=== PATIENT | male | born 2000 | race Caucasian/White ===

== ENCOUNTER 2024-05-12 10:26 | Emergency (ER) | payer SELFPAY ==
[2024-05-12 10:37] VITALS: BP 140/73
--- NOTE | 2024-05-12 11:45 | ED.SKININJ ---
HPI-Injury
General
Chief Complaint: Skin Surface Trauma
Source: patient
Exam Limitations: none
Time Seen by Provider: 05/12/24 11:12
History of Present Illness-Injury
Is this injury a work related problem?: Yes
Is pt an associate of [facility]?: No
Initial Injury comments:
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 He states he had a tetanus shot within the last 5 years.
Past History
Past History
ED Past Medical History: None
ED Past Surgical History: Appendectomy
Social History
Tobacco: Non-smoker
Alcohol: None
Drug: None
Personal: Single
Living: with family
Employment: Employed
Family History
Family History: Other (Noncontributory)
Review of Systems
Review of Systems
Allergies reviewed?: Yes
All Other Systems: ROS reviewed and negative except as documented in HPI and ROS
Skin: Reports other (Right forearm wound)
Skin Exam
Abrasion
Right anterior lower forearm:
Description of abrasion: deep/clean (no active bleeding. )
Phy Exam
Physical Exam
Physical Exam:
PHYSICAL EXAMINATION:
General: no apparent distress, not acutely ill
Neuro: alert and oriented.
Psychiatric: well kept. interactive and cooperative
Musculoskeletal: Moves with ease
Skin: Warm, pink.
Course
Vital Signs
Initial and Last Documented VS:
Initial Vital Signs
Temp Pulse Resp BP Pulse Ox
98.1 F 68 20 140/73 97
05/12/24 10:37 05/12/24 10:37 05/12/24 10:37 05/12/24 10:37 05/12/24 10:37
Last Documented Vital Signs
Temp Pulse Resp BP Pulse Ox
98.1 F 68 20 140/73 97
05/12/24 10:37 05/12/24 10:37 05/12/24 10:37 05/12/24 10:37 05/12/24 10:37
MDM/Problems Addressed
MDM/Problems Addressed:
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 He states he had a tetanus shot within the last 5 years.
Wound cleansed with antibiotic soap and water, antibiotic ointment and Band-Aid applied. Patient is okay to go back to work.
*Critical Care Note
Total Time (30-74mins, 75-104mins- exclusive of procedures): Not Applicable
ED Attending Note
-
Portions of this chart may have been created with voice recognition software.� Occasional wrong word or��sound alike� substitutions may have occurred due to the inherent limitations of voice recognition software.
Discharge Plan
Departure
Patient Disposition: Home (Routine Discharge)
Date of Disposition: 05/12/24
Time of Disposition: 11:44
Patient with high blood pressure during this ER visit?: No
Condition: Good
Discharge Problem:
Abrasion of right forearm
Instructions: Taking care of cuts, scrapes, and puncture wounds
Prescriptions:
No Action
sulfamethoxazole-trimethoprim 1 TABLET tablet
1 tab PO BID Qty: 14 0RF
cephalexin 500 MG capsule
500 mg PO QID Qty: 28 0RF
hydrocodone-acetaminophen 1 TABLET tablet
1 tab PO Q4HPRN PRN (Reason: pain) Qty: 5 0RF
ibuprofen 600 MG tablet
600 mg PO Q6HPRN PRN (Reason: pain) Qty: 20 0RF
hydrocodone-acetaminophen 1 TABLET tablet
1 tab PO Q4HPRN PRN (Reason: pain) Qty: 9 0RF
Referrals:
Jose Carlos Foster DO [Family Provider] -
Stand Alone Forms: Return to Work
Activity Restrictions/Additional Instructions:
As we discussed, cleanse the wound daily with soap and water, keep it covered with a Band-Aid until well-healed (10 days)
Interventions
Interventions:
*Risk Screen - Suicide Last Done: 05/12/24 10:37
*General Assessment Last Done: 05/12/24 10:37
*Neglect/Abuse Screening Last Done: 05/12/24 10:37
*Nursing Disposition Last Done: 05/12/24 11:50
ED-Skin Assessment Last Done: 05/12/24 11:24
Discharge Date and Time
Discharge Date/Time: 05/12/24 11:50
Print Language: LEBANESE
== END 2024-05-12 11:50 | disposition home or self-care (01) ==
LOC: EMR 10:26
PROVIDERS: EMERGENCY PHYSICIAN Emergency Medicine; FAMILY PHYSICIAN Family Medicine
DX: S50.811A Abrasion of right forearm, initial encounter (principal); X58.XXXA Exposure to other specified factors, initial encounter; Y93.89 Activity, other specified; Y92.239 Unspecified place in hospital as the place of occurrence of the external cause; Y99.0 Civilian activity done for income or pay; Z91.013 Allergy to seafood
CPT/HCPCS: 99281

== ENCOUNTER → 2025-06-19 10:44 | Outpatient (REF) | payer BC, SELFPAY | LOC: RAD 10:44 | PROVIDERS: ATTENDING PHYSICIAN Family Medicine | DX: N50.811 Right testicular pain (principal) | CPT/HCPCS: 76870; 93976 ==